=== PATIENT | male | born 1935 | race Caucasian/White ===

== ENCOUNTER → 2020-07-05 11:04 | Outpatient (BNVA) | payer MEDICARE, SELFPAY | PROVIDERS: PCP Internal Medicine; Referring Provider Internal Medicine; Visit Provider Hospitalist | DX: J44.9 Chronic obstructive pulmonary disease, unspecified (principal); R06.00 Dyspnea, unspecified | CPT/HCPCS: Q3014 ==

== ENCOUNTER → 2021-04-06 13:28 | Outpatient (REF) | payer MEDICARE, SELFPAY ==
--- NOTE | ~2021-04-06 | XR_ITS ---
EXAMINATION: XR CHEST CLINICAL INFORMATION: COPD. COMPARISON: None TECHNIQUE: 2 views of the chest were obtained. FINDINGS: Patient is status post previous abdominal and mediastinal surgery which may be related to a gastric pull-up. There appears be postoperative pleural parenchymal scarring at the left base. No definite acute parenchymal disease identified. No pneumothorax or significant pleural effusion. Heart normal size. No evidence of pulmonary edema. XR/XR chest 2V IMPRESSION: Postsurgical change of the chest. No previous study available for comparison. No definite acute parenchymal disease.
--- NOTE | 2021-04-06 14:20 | ECG_ITS ---
Test Reason : copd Blood Pressure : / mmHG Vent. Rate : 078 BPM Atrial Rate : 000 BPM P-R Int : 000 ms QRS Dur : 074 ms QT Int : 372 ms P-R-T Axes : 000 -04 064 degrees QTc Int : 424 ms Atrial fibrillation Abnormal ECG No previous ECGs available Referred By: Roderick Montague Electronically Signed By:SUNNY ANTONIO
== END ==
LOC: HO.CARD 13:28
PROVIDERS: PCP Internal Medicine; Visit Provider Hospitalist
DX: R00.2 Palpitations (principal); R06.00 Dyspnea, unspecified; J44.9 Chronic obstructive pulmonary disease, unspecified; I48.91 Unspecified atrial fibrillation; R29.6 Repeated falls
CPT/HCPCS: 71046; 93005; 99212

== ENCOUNTER → 2021-11-02 13:03 | Outpatient (BNVA) | payer MEDICARE, SELFPAY | PROVIDERS: PCP Internal Medicine; Visit Provider Hospitalist | DX: J44.9 Chronic obstructive pulmonary disease, unspecified (principal); R06.00 Dyspnea, unspecified | CPT/HCPCS: 94618; 99212 ==

== ENCOUNTER 2022-05-31 15:10 | Outpatient (REF) | payer MEDICARE, SELFPAY ==
--- NOTE | ~2022-05-31 | XR_ITS ---
EXAMINATION: XR CHEST CLINICAL INFORMATION: Pleural effusion. COMPARISON: 04/06/2021. TECHNIQUE: 2 views of the chest were obtained. FINDINGS: There is a right-sided hydropneumothorax with what appears to be thickened pleura and appearance of trapped lung. There is no imaging here demonstrating this in the past. 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 Patient is status post previous mediastinal surgery which may be related to gastric pull-up. 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 Heart is normal size. No evidence of pulmonary edema. There is some prominence of right paratracheal soft tissues. There is degenerative change with spurring seen about the left shoulder. Cardiac recorder is seen in place. 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
== END 2022-05-31 15:11 | disposition home or self-care (01) ==
LOC: HO.XRAY 15:10
PROVIDERS: Visit Provider Hospitalist
DX: J90 Pleural effusion, not elsewhere classified (principal); R06.00 Dyspnea, unspecified; J98.19 Other pulmonary collapse; C43.9 Malignant melanoma of skin, unspecified; Z99.81 Dependence on supplemental oxygen
CPT/HCPCS: 71046; 99212